=== PATIENT | male | born 1940 | race Caucasian/White ===

== ENCOUNTER 2019-03-26 03:34 | Inpatient (IN) ==
--- NOTE | 2019-03-19 10:09 | EKG Report ---
Test Performed on : 03/19/2019 09:50:16 AM Test Reason : PAT Blood Pressure : / mmHG Vent. Rate : 062 BPM Atrial Rate : 062 BPM P-R Int : 000 ms QRS Dur : 156 ms QT Int : 478 ms P-R-T Axes : 000 -74 095 degrees QTc Int : 485 ms AV dual-paced rhythm Abnormal ECG When compared with ECG of 27-MAY-2015 17:24, Electronic ventricular pacemaker has replaced Sinus rhythm. Confirmed by Jerzy NÚÑEZ, Leo Ann ([id number]) on 03/19/2019 3:27:57 PM
[2019-03-19 10:36] LABS: HEMATOCRIT 35.2 % (42.0-52.0); HEMOGLOBIN 12.1 g/dL (14.0-18.0); MCH 30.9 PG (27-31); MCHC 34.4 g/dL (33-37); MPV 9.6 FL (7.4-10.4); RBC 3.91 XMIL (4.7-6.1); RDW 12.1 % (11.5-14.5); WBC 6.96 X1000 (4.8-10.8)
[2019-03-19 11:29] LABS: CALCIUM 9.4 mg/dL (8.8-10.2); CREATININE 1.2 mg/dL (0.7-1.2); POTASSIUM 5.4 mmol/L (3.5-5.1)
[2019-03-26] MEDS ORDERED: KEFZOL 1 GM/D5W 1 GM/50 ML IVPB ONE (05:51)
[2019-03-26] MEDS ORDERED: LR 500 ML ONE (05:51)
[2019-03-26] MEDS ORDERED: XYLOCAINE 1% ONE (06:29)
[2019-03-26] MEDS ORDERED: NS 1,000 ML ONE (06:29)
[2019-03-26] MEDS ORDERED: MARCAINE 0.25% PF/EPI 1:200,000 ONE (06:29)
[2019-03-26] MEDS ORDERED: NS 500 ML ONE (06:29)
[2019-03-26] MEDS ORDERED: KEFZOL ONE (06:29)
[2019-03-26] MEDS ORDERED: HEPARIN ONE (06:29)
[2019-03-26] MEDS ORDERED: DIPRIVAN 1% ONE (06:33)
[2019-03-26] MEDS ORDERED: FENTANYL ONE (06:41)
[2019-03-26] MEDS ORDERED: AMIDATE ONE (06:47)
[2019-03-26] MEDS ORDERED: NEO-SYNEPHRINE ONE (06:48)
[2019-03-26] MEDS ORDERED: NORCURON ONE (06:48)
[2019-03-26] MEDS ORDERED: SODIUM CHLORIDE 0.9% 10 ML ONE (06:48)
[2019-03-26] MEDS ORDERED: QUELICIN (DOSE) ONE (06:48)
[2019-03-26] MEDS ORDERED: XYLOCAINE-MPF 2% ONE (06:48)
[2019-03-26] MEDS ORDERED: NITROGLYCERIN ONE (06:53)
[2019-03-26] MEDS ORDERED: LTA KIT ONE (07:18)
[2019-03-26] MEDS ORDERED: HEPARIN (DOSE) ONE (07:34)
[2019-03-26] MEDS ORDERED: ZOFRAN ONE (07:34)
--- NOTE | 2019-03-26 08:51 | OPERATIVE NOTE ---
PROCEDURE DATE: 03/26/2019 PROCEDURE PERFORMED: Left carotid endarterectomy with patch angioplasty. SURGEON: Lito Hernandez MD. CIVIL ENGINEERING SPECIALIST: Zak Enriquez RN. PREOPERATIVE DIAGNOSIS: High-grade left internal carotid stenosis. POSTOPERATIVE DIAGNOSIS: High-grade left internal carotid stenosis. DESCRIPTION OF PROCEDURE: Satisfactory general endotracheal anesthesia was achieved. The left side of the neck was prepped and draped in a sterile fashion. We marked the skin line that we chose to incise. We anesthetized the skin 0.25 Marcaine with epinephrine. We then incised the skin transversely in the skin line. We carried our incision through the platysma. We then dissected along the anterior border of the sternocleidomastoid muscle. Small crossing veins were ligated and divided. A Gelpi retractor was placed. We dissected out the common carotid artery surrounded with an umbilical tape. Total of 5000 units of heparin were given. We then dissected out the bulb in the external and internal carotid arteries. We surrounded the external carotid artery with a large vessel loop. We dissected out the internal carotid artery with a small vessel loop. At this point, we had heparin circulated satisfactorily for over 3 minutes. We then clamped the branch vessels with the vessel loops. Clamped off the common carotid with a 35/35 angle DeBakey clamp. Under 2.5 loupe magnification, we then incised the common, extended with the Francis scissors through the significant calcific plaque into the normal appearing internal carotid. We placed a 4 to 3 mm Sundt shunt in less than 2 minutes. We then used a [place] tool to raise the plaque out of the artery. An Adson right angle assisted in developing the plane proximally, then transected with the Francis. We then used a [place] to continue to dissect the plaque from the bulb. We did an eversion endarterectomy from the external and then continued dissecting into the internal until we had completely removed the plaque. There was no significant intimal cleft. We irrigated out the endarterectomized vessel and removed all leaflets we could identify. We then had obtained a 1 x 6 bovine patch and soaked it. We then began the patch angioplasty with a 6-0 Prolene stitch. As we neared completion of the patch angioplasty, we back bled the external, removed the shunt from the internal and clamped it off once again. We then removed the shunt from the common and flushed it and clamped it once again. We finished the patch angioplasty. We held the internal occluded, opened the external, then the common and, after 7 seconds, opened the internal. One additional stitch was used to secure complete hemostasis around the patch angioplasty. Some Gelfoam was used for the needle holes. We irrigated out the wound with Kefzol- impregnated saline. We placed a Bj drain within the wound. We secured to the skin with 2-0 silk. We were satisfied with hemostasis. We then closed the platysma with a running 3-0 Polysorb. Once again, injected 0.25 Marcaine with epinephrine and closed the skin with a 4-0 Polysorb subcuticular stitch. A sterile dressing was applied. He tolerated the procedure satisfactorily, was awakened at the time of this dictation. cc: Lito Hernandez MD
[2019-03-26] MEDS ORDERED: LR 1,000 ML ONE (08:56)
[2019-03-26] MEDS: OFIRMEV 1000 MG/ISOTONIC SOLN 1,000 MG/100 ML BOTTLE ONE ×2 (09:11→11:25)
[2019-03-26] MEDS ORDERED: ASPIRIN PO SCH (10:57)
[2019-03-26] MEDS ORDERED: ULTRAM PO PRN (10:57)
[2019-03-26] MEDS ORDERED: ZOFRAN IV PRN (10:57)
[2019-03-26] MEDS: ASPIRIN PO SCH (11:56)
[2019-03-26] MEDS: COREG PO SCH ×2 (11:56→20:07)
[2019-03-26] MEDS: ALDACTONE PO SCH (11:56)
[2019-03-26] MEDS: GLUCOTROL PO SCH (11:56)
[2019-03-26] MEDS: GLUCOPHAGE PO SCH ×2 (11:56→16:59)
[2019-03-26] MEDS: LASIX PO SCH (11:57)
[2019-03-26] MEDS: ENTRESTO 49 MG-51 MG TABLET PO SCH ×2 (11:57→20:06)
[2019-03-26] MEDS: LR 1,000 ML IV SCH ×2 (14:15→22:01)
[2019-03-26] MEDS: OFIRMEV 1000 MG/ISOTONIC SOLN 1,000 MG/100 ML BOTTLE IV SCH ×2 (16:59→22:01)
[2019-03-26] MEDS: LIPITOR PO SCH (20:06)
[2019-03-27] MEDS: OFIRMEV 1000 MG/ISOTONIC SOLN 1,000 MG/100 ML BOTTLE IV SCH (05:07)
[2019-03-27] MEDS ORDERED: LR 1,000 ML IV SCH (06:55)
[2019-03-27] MEDS ORDERED: NORCO-5 PO ONE (06:56)
--- NOTE | 2019-03-27 07:11 | GENERAL SURGERY PROGRESS NOTE ---
DATE: 03/27/2019 He is postop day 1 after left carotid endarterectomy. His heart rate is 55, blood pressure 112/58. Trachea is in the midline. No significant neck hematoma. Urologically, he is fine. His speech is normal. The plan is to remove his arterial line today, remove his drain, advance his diet, and transfer him to a regular room. cc: Lito Hernandez MD
[2019-03-27] MEDS: ENTRESTO 49 MG-51 MG TABLET PO SCH ×2 (08:13→22:57)
[2019-03-27] MEDS: ALDACTONE PO SCH (08:13)
[2019-03-27] MEDS: GLUCOPHAGE PO SCH ×2 (08:13→16:15)
[2019-03-27] MEDS: COREG PO SCH ×2 (08:13→22:58)
[2019-03-27] MEDS: LASIX PO SCH (08:14)
[2019-03-27] MEDS: ASPIRIN PO SCH (08:14)
[2019-03-27] MEDS: GLUCOTROL PO SCH (08:14)
[2019-03-27] MEDS: LIPITOR PO SCH (22:57)
[2019-03-28 07:45] VITALS: BP 132/66
[2019-03-28] MEDS: GLUCOPHAGE PO SCH (08:59)
[2019-03-28] MEDS: ALDACTONE PO SCH (08:59)
[2019-03-28] MEDS: LASIX PO SCH (08:59)
[2019-03-28] MEDS: ASPIRIN PO SCH (08:59)
[2019-03-28] MEDS: ENTRESTO 49 MG-51 MG TABLET PO SCH (09:00)
[2019-03-28] MEDS: COREG PO SCH (09:00)
[2019-03-28] MEDS: GLUCOTROL PO SCH (09:00)
--- NOTE | 2019-03-28 11:19 | GENERAL SURGERY PROGRESS NOTE ---
DATE: 03/28/2019 SUBJECTIVE: Mr. Benjamin is doing well this morning. OBJECTIVE: His trachea is in the midline. Neurologically he is fine. His wound is okay. PLAN: We will discharge him today. He will resume his usual medicines. He will return to see me in the office in 10 days. cc: Lito Hernandez MD
== END 2019-03-28 10:59 | disposition home or self-care (01) | DRG 38 ==
LOC: SURHOLD 03:34 → ICU 10:00 → 4N 03-27 08:27
PROVIDERS: ADMIT Surgery; ATTEND Surgery
CPT/HCPCS: 80048; 82948; 85027; 88304; 94761; A9270; C1763; J0131; J0330; J0690; J1644; J2370; J2405; J3010; J7030; J7050; J7120; XXXXX